=== PATIENT | male | born 1995 | race African-American/Black ===

== ENCOUNTER 2020-12-10 03:04 | Emergency (ER) | payer OTHER ==
[2020-12-10 03:19] VITALS: BP 125/81; PULSE 74; TEMP 98.2; BMI 43.0
[2020-12-10] MEDS ORDERED: CLINDAMYCIN HCL 150 MG CAPSULE (FP) PO ONE (03:32)
[2020-12-10] MEDS ORDERED: CLINDAMYCIN HCL 150 MG CAPSULE (FP) ONE (03:45)
[2020-12-10] MEDS ORDERED: DIPHTH,PERTUSS(ACELL),TET 0.5 ML DISP.SYRIN IM ONE ×2 (03:54→03:55)
== END 2020-12-10 04:11 | disposition home or self-care (01) ==
LOC: FER 03:04
PROC: 0H9RXZZ Drainage of Toe Nail, External Approach (ICD-10-PCS; principal; 2020-12-10)
PROC: 3E0234Z Introduction of Serum, Toxoid and Vaccine into Muscle, Percutaneous Approach (ICD-10-PCS; 2020-12-10)
DX: L03.031 Cellulitis of right toe (principal)
CPT/HCPCS: 87070; 87186; 87205; 90471; 90715; 99284-25